=== PATIENT | female | born 1950 | race Caucasian/White ===

== ENCOUNTER 2016-11-14 20:07 | Emergency (ER) | payer BC, OTHER ==
[2016-11-14 20:31] VITALS: BP 162/87
--- NOTE | 2016-11-14 20:49 | EDM.PDOC ---
ED HPI GENERAL MEDICAL PROBLEM - General Chief Complaint: Skin Complaint Stated Complaint: INFECTION Time Seen by Provider: 11/14/16 20:34 Source of Information: Reports: Patient History Limitations: Reports: No Limitations - History of Present Illness INITIAL COMMENTS - FREE TEXT/NARRATIVE: 66 yo presents to ER with concern of a skin infection at the site of mole removal. sutures from removal were removed 3 days ago without difficulty. last evening pt changed dressing to current band-aid and noticed mild itching throughout the day. She removed band-aid this evening and noticed mild erythema surrounding wound. denies fever, chills, or general illness - Related Data Allergies Allergy/AdvReac Type Severity Reaction Status Date / Time No Known Allergies Allergy Verified 11/14/16 20:19 Home Meds: Home Meds Atenolol [Atenolol] 25 mg PO DAILY 11/14/16 [History] Benazepril [Lotensin] 20 mg PO DAILY 11/14/16 [History] Cetirizine HCl [All Day Allergy] 10 mg PO DAILY 11/14/16 [History] Chlorthalidone 25 mg PO DAILY 11/14/16 [History] atorvaSTATin Calcium [Atorvastatin Calcium] 10 mg PO DAILY 11/14/16 [History] metFORMIN HCl [Metformin HCl] 500 mg PO DAILY 11/14/16 [History] Past Medical History Cardiovascular History: Reports: High Cholesterol, Hypertension Respiratory History: Reports: Other (See Below) Other Respiratory History: fibris dysplagia, 2 ribs removed Musculoskeletal History: Reports: Fracture Endocrine/Metabolic History: Reports: Other (See Below) Other Endocrine/Metabolic History: borderline DM Hematologic History: Reports: Blood Transfusion(s) - Infectious Disease History Infectious Disease History: Reports: Chicken Pox, Measles, Mumps Social & Family History - Tobacco Use Smoking Status *Q: Never Smoker Second Hand Smoke Exposure: No - Caffeine Use Caffeine Use: Reports: Coffee - Recreational Drug Use Recreational Drug Use: No ED ROS GENERAL - Review of Systems Review Of Systems: See Below Constitutional: Denies: Fever, Chills Respiratory: Denies: Shortness of Breath, Wheezing Cardiovascular: Denies: Chest Pain Skin: Reports: Rash ED EXAM, SKIN/RASH Exam: See Below Exam Limited By: No Limitations General Appearance: Alert, WD/WN, No Apparent Distress Respiratory/Chest: No Respiratory Distress Skin: Warm, Dry, Intact, Rash (mild erythema at area of band-aid pad contact. laceration no signs of infection crusted) Location, Skin: Upper Extremity, Right Course - Vital Signs Last Recorded V/S: Last Vital Signs Temp 36.6 C 11/14/16 20:24 Pulse 98 11/14/16 20:24 Resp 16 11/14/16 20:24 BP 162/87 H 11/14/16 20:24 Pulse Ox 100 11/14/16 20:24 - Re-Assessments/Exams Free Text/Narrative Re-Assessment/Exam: 11/14/16 20:55 evaluated on arrival to ER. reassured that laceration is healing well. erythema is in the contact area of the band-aid pad. mildly itchy. dx contact dermatitis with plan of ice for itching relief and avoid contact with that brand of band-aids Departure - Departure Time of Disposition: 20:48 Disposition: Home, Self-Care 01 Condition: good Clinical Impression: Contact dermatitis Qualifiers: Contact dermatitis type: irritant Contact dermatitis trigger: other trigger Qualified Code(s): L24.89 - Irritant contact dermatitis due to other agents - Discharge Information Instructions: Contact Dermatitis Referrals: Teresita Brian MD [Primary Care Provider] - Forms: ED Department Discharge Additional Instructions: mild allergic reaction to the band-aid
== END 2016-11-14 20:58 | disposition home or self-care (01) ==
LOC: JP.ED 20:07
DX: L24.89 Irritant contact dermatitis due to other agents (principal); I10 Essential (primary) hypertension; E78.00 Pure hypercholesterolemia, unspecified; Z79.899 Other long term (current) drug therapy
CPT/HCPCS: 99282; 99283

== ENCOUNTER 2021-06-23 07:59 | Day surgery (SDC) | payer MEDICARE ==
[2021-06-23] MEDS ORDERED: Sodium Chloride 0.9% 1,000 ML IV SCH (08:30)
[2021-06-23] MEDS ORDERED: fentaNYL 100 MCG/2 ML SDV ONE (09:03)
[2021-06-23] MEDS ORDERED: Midazolam 1 MG/ML 2 ML SDV ONE (09:03)
[2021-06-23] MEDS ORDERED: Propofol 200 MG/20 ML SDV ONE (09:04)
[2021-06-23 10:58] VITALS: BP 139/87; PULSE 82
--- NOTE | 2021-06-24 07:49 | OR ---
DATE OF PROCEDURE: 06/23/2021 SURGEON: Brian Serrano MD PROCEDURE: Colonoscopy. FINDINGS: 1. Diverticulosis, densely concentrated in the sigmoid colon with a few scattered diverticula throughout the entire colon. 2. Moderately tortuous sigmoid colon. 3. No gross evidence of colitis. Random biopsies were performed of the ascending, transverse, sigmoid colon, and rectum. POSTOPERATIVE DIAGNOSIS: Concern for microscopic colitis. POSTOPERATIVE DIAGNOSIS: Concern for microscopic colitis. RISKS: Risks, benefits, alternatives, and limitations including, but not limited to infection, bleeding, perforation, false positive, and false negatives were explained to the patient and they wished to proceed. PROCEDURE IN DETAIL: The patient was placed in left lateral decubitus position. Digital rectal exam was performed without abnormality. Scope was introduced and advanced atraumatically to the ileocecal valve. Attempts were made to cannulate the ileocecal valve, but due to the Endocuff and due to the anatomical angle of the ileocecal valve, this was able to be cannulized, but was immediately kicked out. However, no evidence of inflammation was noted. The scope was brought back to the remainder of the colon. No abnormalities were noted except for the diverticulosis. The diverticulosis described as quite dense, mostly in the sigmoid colon. There was no evidence of diverticulitis or bleeding. There were a few scattered diverticula through the entire colon. However, the density would be described as moderate to severe in the sigmoid colon. The patient also had a tortuosity associated the sigmoid colon. These diverticula in combination with the tortuosity could result in change in bowel activity. On retrospect, no abnormalities noted. Random biopsies were performed at the aforementioned locations using cold biopsy forceps. Greater than 8 minutes was spent removing the scope. Prep was acceptable, approximately 90% luminal surface could be seen. There was some solid and liquid stool remaining, possibly precluding observation of polyps around 5 mm range. The patient tolerated the procedure well. Brian Serrano MD /[id number]
== END 2021-06-23 11:10 | disposition home or self-care (01) ==
LOC: JP.SDS 07:59
PROVIDERS: ATTEND Surgery
DX: K57.30 Diverticulosis of large intestine without perforation or abscess without bleeding (principal); K52.9 Noninfective gastroenteritis and colitis, unspecified; I12.9 Hypertensive chronic kidney disease with stage 1 through stage 4 chronic kidney disease, or unspecified chronic kidney disease; N18.30 Chronic kidney disease, stage 3 unspecified; E11.22 Type 2 diabetes mellitus with diabetic chronic kidney disease
CPT/HCPCS: 45380; J2250; J2704; J3010; J7030; 88305